=== PATIENT | male | born 2000 | race Caucasian/White ===

== ENCOUNTER → 2021-02-22 08:44 | Outpatient (CLI) | payer OTHER, SELFPAY ==
[2021-02-22 22:11] LABS: SARS-CoV-2 RNA PCR Positive
== END ==
PROVIDERS: Visit Provider Nurse Practitioner Family
DX: U07.1 COVID-19 (principal)
CPT/HCPCS: C9803; U0003; U0005

== ENCOUNTER 2022-03-31 22:55 | Observation (INO) | payer OTHER, SELFPAY ==
--- NOTE | ~2022-03-31 | CT_ITS ---
EXAMINATION: CTA chest PE protocol DATE: 04/01/2022 03:26 INDICATION: Upper chest pain, shortness of breath. Elevated d-dimer. TECHNIQUE: Computed tomography angiography (CTA) of the chest was performed with 100 mL Omnipaque-350 intravenous contrast timed to evaluate the pulmonary arteries. Coronal maximum intensity projection 3D-reconstructions were created by the technologist. Automated exposure control and iterative reconst ruction technique were employed. Exam dose: 215.61 mGy-cm total exam DLP. COMPARISON: April 01, 2019 3:00 PM lateral chest FINDINGS: There is prominent pneumomediastinum, from upper to lower chest. Prominent cervical subcuta neous emphysema and mild upper thoracic subcutaneous emphysema. Slight right apical pneumothorax. Mild bilateral apical scarring. No pulmonary infiltrate or consolidation. Normal heart size. No pericardial effusion or pleural effusion. Included upper abdominal structures a re unremarkable. There is diagnostic contrast enhancement of the pulmonary arteries and no evidence of pulmonary embol ism. IMPRESSION: Extensive pneumomediastinum, prominent cervical and mild upper thoracic subcutaneous emp hysema Minimal right apical pneumothorax No evidence of pulmonary embolism Reviewed, dictated and finalized at [facility]. Reviewed, dictated and finalized at location A. KROOM HELPER IMPRESSION: Extensive pneumomediastinum, prominent cervical and mild upper tho racic subcutaneous emphysema Minimal right apical pneumothorax No evidence of pulmonary embolism
--- NOTE | ~2022-03-31 | XR_ITS ---
XR chest 2V DATE: 04/01/2022 00:30 INDICATION: Chest pain. Elevated d-dimer. TECHNIQUE: PA and lateral views COMPARISON: None FINDINGS: There is pneumomediastinum and cervical subcutaneous emphysema. Slight right apical pneumot horax. Normal heart size. No hilar or mediastinal enlargement. No pulmonary infiltrate or consolidation, ple ural effusion or pulmonary vascular congestion or pneumothorax is detected. IMPRESSION: Slight right apical pneumothorax and pneumomediastinum Reviewed, dictated and finalized at location A. T MAKER
--- NOTE | ~2022-03-31 | XR_ITS ---
XR chest 1V portable 04/02/2022 06:25 Indication: Pneumothorax. Procedure: AP portable chest Comparison: Comparison to multiple prior studies sequentially, with oldest reviewed study dated 04/01. Findings: Stable small right apical pneumothorax and pneumomediastinum. Heart size normal. No focal p neumonia, edema, pleural effusion. No acute osseous abnormality. Impression: 1: Stable small right apical pneumothorax and pneumomediastinum. Reviewed, dictated and finalized at location A. ROUND LOGGER Impression: 1: Stable small right apical pneumothorax and pneumomediastinum.
--- NOTE | ~2022-03-31 | XR_ITS ---
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 RESULT: Lines, tubes, and devices: None. Lungs and pleura: Demonstration of the tiny right apical pneumothorax, unchanged. Lungs otherwise cl ear. Cardiomediastinal silhouette: Stable pneumomediastinum. Other: No acute osseous or upper abdominal finding. IMPRESSION: Stable small right apical pneumothorax and pneumomediastinum. Reviewed, dictated and finalized at location K. C THEORY TEACHER
--- NOTE | ~2022-03-31 | XR_ITS ---
EXAMINATION: XR chest 2V DATE: 04/03/2022 09:53 INDICATION: Pneumothorax TECHNIQUE: PA and lateral views of the chest were obtained. COMPARISON: Chest radiograph dated 04/02/2022 and 04/01/2022 FINDINGS: The lungs are clear with no focal airspace opacities, pulmonary edema, pleural effusion or pneumothor ax. Heart size is normal. Decrease in a now minimal amount of pneumomediastinum seen anterior to the heart on the lateral projection. Mild upper thoracic levocurvature. IMPRESSION: 1. Interval decrease in a small amount of residual pneumomediastinum. No pneumothorax or other acute cardiopulmonary disease. Reviewed, dictated and finalized at location D. DE SALES MANAGER IMPRESSION: 1. Interval decrease in a small amount of residual pneumomediastinum. No pneumo thorax or other acute cardiopulmonary disease.
--- NOTE | 2022-03-31 22:56 | ECG_ITS ---
Measurements Intervals [place] Rate: 113 P: 87 NM: 138 QRS: 89 QRSD: 90 T: 22 QT: 303 QTc: 416 Interpretive Statements SINUS TACHYCARDIA POSSIBLE RIGHT ATRIAL ENLARGEMENT [0.25mV P WAVE] LEFT VENTRICULAR HYPERTROPHY AND ST-T CHANGE [VOLTAGE CRITERIA PLUS ST/T ABNORMALITY] NO PREVIOUS ECG AVAILABLE FOR COMPARISON Electronically Signed On 04-01-2022 16:17:52 FLOORING MECHANIC by Ryan Torres M.D.
[2022-03-31 22:57] VITALS: BP 166/101; PULSE 116; RESP 16; TEMP 36.8; O2SAT 99
[2022-03-31 23:14] LABS: Basophils Percent Auto 0.3 % (0.2-1.2); Eosinophils Absolute Auto 0.3 K/mm3 (0-0.3); Eosinophils Percent Auto 2.4 % (0-4.4); Hematocrit 43.9 % (42.0-52.0); Hemoglobin 15.7 g/dL (14.0-18.0); Immature Granulocyte Absolute 0.05 K/mm3 (0.00-0.031); Immature Granulocyte Percent A 0.5 % (0-0.5); Lymphocytes Absolute Auto 1.18 K/mm3 (0.9-3.2); Lymphocytes Percent Auto 10.7 % (18.3-44.2); Mean Corpuscular HGB Conc 35.8 g/dl (32-36); Mean Corpuscular Volume 83.9 fl (80-100); Mean Platelet Volume 11.3 fl (7.4-10.4); Monocytes Percent Auto 9.4 % (2.6-8.5); Neutrophils Absolute Auto 8.4 K/mm3 (1.3-6.7); Neutrophils Percent Auto 76.7 % (45.5-73.1); Platelet Count Result 211 k/mm3 (150-375); Red Blood Count 5.23 M/mm3 (4.6-6.20); Red Cell Distribution Width 12.5 % (11.5-14.5)
[2022-03-31 23:24] LABS: INR 1.2; Partial Thromboplastin Time 28.8 SECONDS (22.3-36.8); Prothrombin Time 14.9 Seconds (11.1-14.7)
[2022-03-31 23:29] LABS: Alanine Aminotransferase 20 U/L (6-50); Albumin Level 4.9 g/dL (3.5-5.1); Alkaline Phosphatase 86 U/L (38-126); Anion Gap 10 mmol/L (8-16); Aspartate Amino Transferase 27 U/L (17-59); Bilirubin,Total 2.1 mg/dL (0.2-1.3); Blood Urea Nitrogen 14 mg/dL (9-20); Calcium 8.9 mg/dL (8.4-10.2); Carbon Dioxide 29 mmol/L (22-30); Chloride 99 mmol/L (98-107); Estimated CRCL calculation 120 ml/min; Estimated Glomerular Filt Rate > 60; Glucose 113 mg/dL (65-110); Lipase 72 U/L (23-300); Potassium 3.8 mmol/L (3.4-5.0); Sodium 138 mmol/L (137-145)
[2022-03-31 23:40] LABS: Troponin I < 0.012 ng/mL (0.000-0.034)
[2022-04-01] VITALS (55 sets, daily range): BP systolic 127–149; BP diastolic 78–98; PULSE 69–101; RESP 10–21; TEMP 37.1; O2SAT 97–100; BMI 19.1
[2022-04-01] MEDS: BELLADONNA ALK/PHENOB ELIX 10 ML, MAG HYDROX/ALUMINUM HYD/SIMETH 30 ML, LIDOCAINE HCL 2... PO (02:24)
[2022-04-01 02:47] LABS: D Dimer 0.53 ug/mL (<0.48)
[2022-04-01 02:49] LABS: Troponin I < 0.012 ng/mL (0.000-0.034)
--- NOTE | 2022-04-01 04:57 | ED.GENADULT ---
HPI - General Adult General Chief complaint: Chest Pain <Hussein Julien MD - Last Filed: 04/01/22 06:34> Stated complaint: CP <Hussein Julien MD - Last Filed: 04/01/22 06:34> Time Seen by Provider: 04/01/22 01:42 <Hussein Julien MD - Last Filed: 04/01/22 06:34> History of Present Illness HPI narrative: Patient 21-year-old gentleman who presents to Emergency Department with a chief complaint of chest pain. Patient reports he has prior history of a spontaneous pneumothorax and reports that he has a feeling of discomfort through his chest up into his neck. <Hussein Julien MD - Last Filed: 04/01/22 06:34> Related Data Allergies/adverse reactions: Allergies Allergy/AdvReac Type Severity Reaction Status Date / Time No Known Allergies Allergy Verified 04/01/22 02:23 <Hussein Julien MD - Last Filed: 04/01/22 06:34> Review of Systems Review of Systems: A 10 system review of systems was completed on the patient and is negative except for what is stated in the HPI. Nursing and ancillary documentation was reviewed. <Hussein Julien MD - Last Filed: 04/01/22 06:34> Exam Narrative: GENERAL: Well-appearing, well-nourished, and in no acute distress. HEAD: Normocephalic, atraumatic. EYES: PERRLA and EOMI. ENT: Nares clear, no rhinorrhea or epistaxis. Mucous membranes moist. NECK: Supple. CHEST: Clear to auscultation. No respiratory distress. HEART: Regular rate and rhythm. No murmur heard. Normal peripheral pulses. ABDOMEN: Soft, nontender, nondistended, normal active bowel sounds. EXTREMITIES: Normal range of motion. No edema. SKIN: Warm, dry, no rash. NEURO: No focal deficits. Alert and oriented x3. PSYCH: Normal mood and affect. <Hussein Julien MD - Last Filed: 04/01/22 06:34> Course Reevaluation(s) Reevaluation #1: 6:[address] [facility] states that a bed is still not available. On reevaluation patient states that he does feel better compared to arrival. Patient denies any worsening chest pain or shortness of breath. Patient is oxygen by nasal cannula and states that this seems to be helping. Repeat chest x-ray showed no worsening of the pneumothorax or pneumomediastinum. Since bed is still not available plan was to see if patient could be admitted at [place]. Case was discussed with the hospitalist and she was comfortable with the plan for admission with surgery clearance. Surgery was updated on the patient and they were comfortable with the plan for admission as long as the patient had no worsening of the pneumothorax or pneumomediastinum. With a stable x-ray patient was placed on MedSurg telemetry for observation until a bed becomes available at [facility]. Patient and family were updated on the plan. All questions concerns were addressed. <Micah Segura MD - Last Filed: 04/01/22 18:04> Vital Signs Vital signs: Vital Signs Temperature 98.3 F 03/31/22 22:57 Pulse Rate 116 H 03/31/22 22:57 Respiratory Rate 16 03/31/22 22:57 Blood Pressure 166/101 H 03/31/22 22:57 Pulse Oximetry 99 03/31/22 22:57 Oxygen Delivery Room Air 03/31/22 22:57 Temperature 98.3 F 03/31/22 22:57 Pulse Rate 89 04/01/22 17:00 Respiratory Rate 16 04/01/22 17:00 Blood Pressure 130/90 04/01/22 17:00 Pulse Oximetry 99 04/01/22 17:00 Oxygen Delivery Room Air 03/31/22 22:57 <Hussein Julien MD - Last Filed: 04/01/22 06:34> Vital Signs Temperature 98.3 F 03/31/22 22:57 Pulse Rate 116 H 03/31/22 22:57 Respiratory Rate 16 03/31/22 22:57 Blood Pressure 166/101 H 03/31/22 22:57 Pulse Oximetry 99 03/31/22 22:57 Oxygen Delivery Room Air 03/31/22 22:57 Temperature 98.3 F 03/31/22 22:57 Pulse Rate 89 04/01/22 17:00 Respiratory Rate 16 04/01/22 17:00 Blood Pressure 130/90 04/01/22 17:00 Pulse Oximetry 99 04/01/22 17:00 Oxygen Delivery
[2022-04-01 05:48] LABS: Troponin I < 0.012 ng/mL (0.000-0.034)
[2022-04-01 06:02] LABS: Influenza A QL RT-PCR Negative (Negative); Influenza B QL RT-PCR Negative (Negative); RSV RNA, RT-PCR Negative (Negative); SARS-CoV-2 RNA PCR Negative
--- NOTE | 2022-04-01 07:10 | PC.NURSE ---
Patient care report given to SURI Coffman. All questions answered at this time and care turned over to SURI Coffman
--- NOTE | 2022-04-01 12:32 | PC.NURSE ---
called [facility] access line, pt still on wait list, no beds available. [id number]
--- NOTE | 2022-04-01 18:31 | PM.IMHP ---
H&P: HPI History of Present Illness Date/Time: 04/01/22 18:31 Chief Complaint: Chest pain shortness [place] Narrative: This is a 21-year-old male patient who has a history of having a spontaneous pneumothorax. The patient denies smoking any marijuana or smoking out of a bone. The patient had a chest tube with his last spontaneous pneumothorax which was a couple years ago. The patient was ambulating when he felt this discomfort to his chest and could not walk due to the shortness of breath. His white count 11.0. His D-dimer was noted to be 0.53. Troponins nonreactive x3. He is negative for influenza A/B RSV and COVID. Chest x-ray was read as stable small right apical pneumothorax and pneumo mediastinum. Chest CTA was read as Extensive pneumomediastinum, prominent cervical and mild upper thoracic subcutaneous emphysema Minimal right apical pneumothorax No evidence of pulmonary embolism Chest x-ray stable small right apical pneumothorax and pneumomediastinum Repeat chest x-ray was read as stable small right apical pneumothorax and pneumomediastinum. The patient was given [place] for pain. Patient was awaiting a bed at [facility] but there are no beds available. The patient stated that he felt better. Surgery was at dated on the patient and they were comfortable with the plan for admission as long as there was no worsening of pneumothorax or pneumomediastinum. Patient will be observed at [facility] until a bed becomes available at [facility]. Patient is admitted to observation status on the date of service of 04/01/2022 Review of Systems Review of Systems: See HPI All systems reviewed & are unremarkable except as noted in HPI and below Constitutional: Constitutional: Reports as per HPI and Reports no additional constitutional complaints Eyes: Eyes: Reports as per HPI and Reports no additional eye complaints ENT: Reports system reviewed and no additional complaints, except as documented and Reports Normal hearing present Cardiovascular: Cardiovascular: Reports no additional cardiovascular complaints Respiratory: Respiratory: Reports no additional respiratory complaints and Reports no additional respiratory complaints Gastrointestinal: Gastrointestinal: Reports as per HPI and Reports no additional gastrointestinal complaints Musculoskeletal: Musculoskeletal: Reports no additional musculoskeletal complaints Integumentary/Breasts: Skin/Breast: Reports system reviewed and no additional complaints, except as docu and Reports as per HPI Neurologic: Reports system reviewed and no additional complaints, except as documented, Reports as per HPI and Reports Normal hearing present Psychiatric: Psychiatric: Reports no additional psychiatric complaints and Reports as per HPI Endocrine: Endocrine: Reports no additional endocrine complaints Hematologic/Lymphatic: Hematologic/Lymphatic: Reports no additional hematologic/lymphatic complaints Allergic/Immunologic: Allergic/Immunologic: Reports no additional allergic/immunologic complaints PMFSH Past Medical History Medical History Anxiety Pneumothorax Surgical History Surgical History Hx of chest tube placement Family History Family History Father Hypertension Social History Social History (Updated 04/01/22 @ 23:51 by Suyapa Valentin NP) Social History: He lives with his parents. 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 He is a lifelong nonsmoker. He is single and has no children. Code status full code Smoking status: Never smoker Alcohol intake: never Substance use: never Lack of Transportation: No Lack of Food: Never True Current Housing: I Do Not Have Housing Concerned About Future Housing: No Difficulty Paying Gas/Electric Bills: No Difficulty Paying for Meds: No Curr
[2022-04-01] MEDS: HYDROcodone/acetaminophen (*CRX) 5-325 MG TABLET 1 TAB PO (19:00)
--- NOTE | 2022-04-01 19:17 | PC.NURSE ---
Report given to Sherlyn MCCORD. Questions answered and care relinquished.
--- NOTE | 2022-04-01 21:41 | ADMGEN ---
This patient, Faisal Small, was admitted to 2 Medical Room 240-01. Patient/family oriented to hospital policies and general routines including ID bracelet, bed and alarms, visiting hours, pain management, procedures, bathroom and other care routines, personal items, smoking policy, room service/diet, and visiting hours. Information on how to activate the Rapid Response Team has been discussed. Patient/Family are encouraged to report perceived risks to care and to ask questions if they do not understand what they are told or what they should do.
--- NOTE | 2022-04-01 22:49 | PC.NURSE ---
[facility] called for patient update, latest vitals were given and relayed no change in condition, still no bed available at this time.
--- NOTE | 2022-04-01 23:58 | PHAR ---
PHARMACY VERIFIED HOME MED: * USE FROM HOME * Vilazodone 20 mg tablet TAKE 1 TABLET BY MOUTH ONCE DAILY WITH FOOD
[2022-04-02] VITALS (9 sets, daily range): BP systolic 127–150; BP diastolic 64–71; PULSE 71–93; RESP 20–21; TEMP 36.9–37.1; O2SAT 100
[2022-04-02 06:16] LABS: Basophils Percent Auto 0.3 % (0.2-1.2); Eosinophils Absolute Auto 0.4 K/mm3 (0-0.3); Eosinophils Percent Auto 3.7 % (0-4.4); Hematocrit 42.8 % (42.0-52.0); Hemoglobin 15.2 g/dL (14.0-18.0); Immature Granulocyte Absolute 0.03 K/mm3 (0.00-0.031); Immature Granulocyte Percent A 0.3 % (0-0.5); Lymphocytes Percent Auto 11.7 % (18.3-44.2); Mean Corpuscular HGB Conc 35.5 g/dl (32-36); Mean Corpuscular Volume 84.4 fl (80-100); Monocytes Absolute Auto 1.2 K/mm3 (0.1-0.6); Monocytes Percent Auto 12.9 % (2.6-8.5); Neutrophils Absolute Auto 6.7 K/mm3 (1.3-6.7); Neutrophils Percent Auto 71.1 % (45.5-73.1); Platelet Count Result 204 k/mm3 (150-375); Red Blood Count 5.07 M/mm3 (4.6-6.20); Red Cell Distribution Width 12.7 % (11.5-14.5); White Blood Count 9.4 K/mm3 (4.5-10.0)
[2022-04-02 06:29] LABS: Lactic Acid Reflex 0.9 mmol/L (0.7-2.0)
[2022-04-02 06:35] LABS: Alanine Aminotransferase 18 U/L (6-50); Albumin Level 4.3 g/dL (3.5-5.1); Alkaline Phosphatase 67 U/L (38-126); Anion Gap 9 mmol/L (8-16); Aspartate Amino Transferase 28 U/L (17-59); Bilirubin,Total 1.9 mg/dL (0.2-1.3); Blood Urea Nitrogen 17 mg/dL (9-20); Calcium 8.7 mg/dL (8.4-10.2); Carbon Dioxide 32 mmol/L (22-30); Chloride 97 mmol/L (98-107); Estimated CRCL calculation 101 ml/min; Estimated Glomerular Filt Rate > 60; Glucose 86 mg/dL (65-110); Potassium 3.8 mmol/L (3.4-5.0); Sodium 138 mmol/L (137-145)
[2022-04-02] MEDS: FLUTICASONE PROPIONATE 0.05% NA SPR 16 GM BTL (*BKC) 2 SPRAY NASAL (08:11)
--- NOTE | 2022-04-02 10:32 | PM.CNGS ---
Assessment and Plan Assessment and plan (1) Pneumothorax, right: Code(s): J93.9 - Pneumothorax, unspecified Status: Acute Assessment and Plan: All imaging reviewed. He presented with spontaneous pneumomediastinum and a small right apical pneumothorax. He is clinically improving and imaging appears stable. He had a repeat chest x-ray this morning that appears stable as well. ER attempted transfer to [facility] for cardiothoracic surgery, but no beds were available and he has been awaiting transfer. We will continue to monitor him and repeat a chest x-ray again tomorrow morning. If this remains stable, then he could potentially be discharged home with outpatient follow-up with thoracic surgery. (2) Pneumomediastinum: Code(s): J98.2 - Interstitial emphysema Status: Acute Plan I have discussed the patient's case and plan of care with Dr. Hernandez. History of Present Illness Consult details Consult date: 04/02/22 Reason for consult: other (Small right apical pneumothorax and pneumomediastinum) Requesting physician: Micah Segura MD Narrative: This is an otherwise healthy 21-year-old man who presented to the ER with complaints of chest pain x 1 day. He reports first noticing some mild chest pain upon waking up Thursday morning, 2 days ago. His pain is in his mid to left chest and up into his anterior neck. He reports having a spontaneous left pneumothorax in 2019 that was treated with a chest tube in [place]. He denies requiring any surgery and has not had any issues since. He does report that his pain felt similar to when he had the pneumothorax in 2019. He went to school Thursday and felt his chest pain got worse and he developed shortness of breath when walking. The pain was severe enough in the evening that he eventually came into the ER for evaluation. He reports having pain in his throat even with swallowing and deep breathing when in the ER. Chest x-ray showed a slight right apical pneumothorax and pneumomediastinum. Labs showed a slightly elevated D-dimer. He subsequently had a chest CTA that showed no pulmonary embolism, minimal right apical pneumothorax, and extensive pneumomediastinum with prominent cervical and mild upper thoracic subcutaneous emphysema. The ER provider attempted to have the patient transferred to [facility] but there was no bed availability. He had a repeat chest x-ray in the ER and the small right apical pneumothorax and pneumomediastinum appeared stable. Due to no bed availability, he was then admitted to the medical floor. Our service was consulted for the pneumothorax and pneumomediastinum. The patient is now seen this morning. He reports feeling much better today. His chest pain and throat pain has improved. He was able to tolerate breakfast and is swallowing without pain. He had one [place] for pain last night but no pain medication this morning. He denies any shortness of breath. Chest x-ray was repeated this morning and showed the tiny right apical pneumothorax and pneumomediastinum appeared stable. He denies any recent blunt trauma or barotrauma. He denies any recent coughing or vomiting. He denies any recent procedures or surgeries. He is a lifelong nonsmoker. Review of Systems Review of Systems: All systems reviewed & are unremarkable except as noted in HPI and below Constitutional: Constitutional: Reports no additional constitutional complaints, Denies fatigue and Denies fever(s) Eyes: Eyes: Reports no additional eye complaints ENT: Reports system reviewed and no additional complaints, except as documented Cardiovascular: Cardiovascular: Reports no additional cardiovascular complaints, Reports chest pain, Denies pedal edema, Denies irregular heart rhythm and Denies leg edema Respiratory: Respiratory: Reports no additional respiratory complaints, Denies cough, Reports dyspnea (resolved) and Denies wheezing Gastrointestinal: Gastrointestinal: Reports no additional gastrointesti
--- NOTE | 2022-04-02 14:26 | PM.IMPN ---
Progress Note: A&P Assessment and Plan (1) Pneumothorax: Code(s): J93.9 - Pneumothorax, unspecified Status: Resolved Assessment and Plan: patient with history of spontaneous pneumothorax requiring chest tube in 2019 presented with complaints of chest and neck pain CXR on presentation showed right apical pneumothorax with pneumomediastinum CTA showed extensive pneumomediastinum with prominent cervical and mild upper thoracic subcutaneous emphysema and minimal right apical pneumothorax, no evidence of PE he has been accepted for transfer to [facility], awaiting bed availability appreciate general surgery consultation continue supplemental oxygen at 2 L supportive care (2) Pneumomediastinum: Code(s): J98.2 - Interstitial emphysema Status: Acute Assessment and Plan: plan as above (3) Anxiety: Code(s): F41.9 - Anxiety disorder, unspecified Status: Chronic Assessment and Plan: No acute issues Continue vilazodone which has been brought from home Subjective Date/time seen: 04/02/22 14:26 Interval history: date of service: 04/02/2022 Faisal Small is a 21-year-old male nonsmoker with a history of anxiety and spontaneous pneumothorax in 2019 requiring chest tube placement who is seen in follow-up again for spontaneous pneumothorax. He is awaiting bed availability at [facility] where he has been accepted for transfer. Patient reports that his symptoms were very similar to his previous spontaneous pneumothorax 4 years ago. About 2 weeks ago he had onset of left chest and throat pain. He saw his primary care provider in the symptoms subsided. Two days ago, the pain returned and was more severe , therefore patient came to ER for evaluation. At this time he is feeling better. He does have some left chest wall and neck pain that he describes as an aching sensation. He denies chest heaviness. He does have pleuritic discomfort. He endorses with of sore throat which is worse when talking or attempting to swallow. He is able to tolerate his diet and denies dysphagia. Denies feeling short of breath. Denies cough. No dizziness or lightheadedness. No palpitation. No abdominal pain, nausea, or vomiting. Review of Systems Review of Systems: All systems reviewed & are unremarkable except as noted in HPI and below Exam Narrative: General: thin, well-appearing 21-year-old male, sitting up in bed, comfortable, NARD Neuro: awake, alert and oriented x4, speech clear, no focal neuro deficits noted HEENMT: normocephalic, atraumatic, EOMI, sclerae anicteric, moist oral mucosa Chest: chest wall is nontender to palpation, no crepitus Respiratory: clear to auscultation bilaterally, nonlabored breathing, able to speak in complete sentences, no accessory muscle use Cardio: regular rate, regular rhythm with S1-S2 Abdomen: nondistended, normoactive bowel sounds, soft, nontender to palpation Extremities: no edema, erythema, or tenderness to palpation, DP pulses 2+ bilaterally Skin: no rashes or lesions, warm and dry Psych: appropriate mood and affect, judgment and insight intact Objective Data Vital Signs Vital Signs: Vital Signs - 24 hr 04/01/22 15:30 04/01/22 16:15 04/01/22 16:01 Temperature Pulse Rate 87 84 87 Respiratory Rate 19 17 13 Blood Pressure 134/86 136/83 Pulse Oximetry 100 100 99 Oxygen Delivery Oxygen Flow Rate 04/01/22 17:00 04/01/22 18:30 04/01/22 19:59 Temperature Pulse Rate 89 89 Respiratory Rate 16 20 Blood Pressure 130/90 140/96 H Pulse Oximetry 99 99 97 Oxygen Delivery Nasal Cannula Oxygen Flow Rate 2 04/01/22 20:38 04/02/22 04:43 04/02/22 00:00 Temperature 98.7 F 98.5 F Pulse Rate 79 86 73 Respiratory Rate 18 20 Blood Pressure 149/85 H 127/71 Pulse Oximetry 100 100 Oxygen Delivery Oxygen Flow Rate 04/02/22 04:00 04/02/22 08:00 04/02/22 12:00 Te
[2022-04-02] MEDS: ACETAMINOPHEN 325 MG TABLET 650 MG PO (21:00)
[2022-04-03] VITALS: PULSE 72
[2022-04-03 04:00] VITALS: PULSE 68
[2022-04-03 06:00] VITALS: BP 129/66; PULSE 77; RESP 20; TEMP 37; O2SAT 99
[2022-04-03 06:11] LABS: Hematocrit 41.2 % (42.0-52.0); Hemoglobin 14.6 g/dL (14.0-18.0); Mean Corpuscular HGB Conc 35.4 g/dl (32-36); Mean Corpuscular Hemoglobin 29.1 pg (26-34); Mean Corpuscular Volume 82.2 fl (80-100); Mean Platelet Volume 11.7 fl (7.4-10.4); Platelet Count Result 194 k/mm3 (150-375); Red Blood Count 5.01 M/mm3 (4.6-6.20); Red Cell Distribution Width 12.3 % (11.5-14.5); White Blood Count 6.8 K/mm3 (4.5-10.0)
[2022-04-03 06:25] LABS: Anion Gap 6 mmol/L (8-16); Blood Urea Nitrogen 12 mg/dL (9-20); Calcium 8.7 mg/dL (8.4-10.2); Carbon Dioxide 32 mmol/L (22-30); Chloride 97 mmol/L (98-107); Estimated CRCL calculation 113 ml/min; Estimated Glomerular Filt Rate > 60; Glucose 94 mg/dL (65-110); Potassium 3.8 mmol/L (3.4-5.0); Sodium 135 mmol/L (137-145)
[2022-04-03 08:00] VITALS: PULSE 77
[2022-04-03] MEDS: FLUTICASONE PROPIONATE 0.05% NA SPR 16 GM BTL (*BKC) 2 SPRAY NASAL (08:12)
[2022-04-03 08:13] VITALS: O2SAT 99
--- NOTE | 2022-04-03 09:31 | PM.PNGS ---
Progress Note: A&P Assessment and Plan (1) Pneumothorax, right: Code(s): J93.9 - Pneumothorax, unspecified Status: Acute Assessment and Plan: Chest x-ray this morning shows interval decrease in pneumomediastinum and no pneumothorax seen. Okay from our standpoint to discharge the patient today and have him follow-up with thoracic surgery as an outpatient. Discussed this with the patient as well and he is already looking into a thoracic surgeon to f/u with at [facility]. (2) Pneumomediastinum: Code(s): J98.2 - Interstitial emphysema Status: Acute Plan I have discussed the patient's case and plan of care with Dr. Hernandez. Subjective Subjective Date/Time Seen: 04/03/22 09:31 Patient reports: no new complaints, feels better and pain is less Interval history: Patient feeling well this morning. Still having some very mild pain that he reports is in his lower left chest. No right-sided chest pain or pain with swallowing. No shortness of breath or difficulty breathing. He is currently on room air and his nurse reports just checking his O2 sat of 97%. No acute issues overnight. Review of Systems Review of Systems: ROS unchanged Exam Const: General: comfortable and no acute distress Nutritional Appearance: thin Orientation/consciousness: patient oriented x3 Chest: Chest palpation & inspection: normal inspection of the chest and no crepitus Resp: Effort & Inspection: no respiratory distress Auscultation: clear to auscultation bilaterally Cardio: Rate: regular rate Rhythm: regular rhythm Objective Data Vital Signs Vital Signs: Vital Signs - 24 hr 04/02/22 12:00 04/02/22 14:00 04/02/22 16:00 Temperature 98.7 F Pulse Rate 83 82 81 Respiratory Rate Blood Pressure 138/68 Pulse Oximetry 100 04/02/22 22:00 04/02/22 20:00 04/03/22 00:00 Temperature 98.7 F Pulse Rate 83 81 72 Respiratory Rate 21 H Blood Pressure 150/64 H Pulse Oximetry 100 04/03/22 04:00 04/03/22 06:00 04/03/22 08:13 Temperature 98.6 F Pulse Rate 68 77 Respiratory Rate 20 Blood Pressure 129/66 Pulse Oximetry 99 99 Intake/Output Intake/Output: Intake & Output 03/31/22 04/01/22 04/02/22 04/03/22 23:59 23:59 23:59 23:59 Intake Total 1170 740 Balance 1170 740 Meds/Results Medications: Active Medications Generic Name Dose Route Start Last Admin Trade Name Stephan PRN Reason Stop Dose Admin Acetaminophen 650 mg 04/02/22 20:46 04/02/22 21:00 Acetaminophen 325 Mg Tablet PO 650 mg Q6H PRN Administration Mild Pain (1-3) or Fever Hydrocodone Bitart/Acetaminophen 1 tab 04/01/22 23:53 Hydrocodone/Acetaminophen (*Crx) 5-325 Mg Tablet PO Q4H PRN Pain Rated 4-6 Fluticasone Propionate 2 spray 04/02/22 09:00 04/03/22 08:12 Fluticasone Propionate 0.05% Na Spr 16 Gm Btl (*Bkc) NASAL 2 spray DAILY ALFRED Administration Home Med 1 each 04/02/22 09:00 04/03/22 08:12 *Home Med* Vilazodone 20 Mg Tablet PO 05/02/22 08:59 1 each DAILY ALFRED Administration Radiology Results: ITS Impressions Chest CTA 04/01/22 06:06 IMPRESSION: Extensive pneumomediastinum, prominent cervical and mild upper thoracic subcutaneous emphysema Minimal right apical pneumothorax No evidence of pulmonary embolism Chest X-Ray 04/02/22 06:26 Impression: 1: Stable small right apical pneumothorax and pneumomediastinum. Labs Labs: Laboratory Results - last 24 hr 04/03/22 04/03/22 05:26 05:26 WBC 6.8 RBC 5.01 Hgb 14.6 Hct 41.2 L MCV 82.2 MCH 29.1 MCHC 35.4 RDW 12.3 Plt Count 194 MPV 11.7 H Sodium 135 L Potassium 3.8 Chloride 97 L Carbon Dioxide 32 H Anion Gap 6 L BUN 12 D Creatinine 0.80 Estim Creat Clear Calc 113 Estimated GFR > 60 Glucose 94 Calcium 8.7
[2022-04-03 14:02] VITALS: BP 139/75; PULSE 86; RESP 16; TEMP 36.9; O2SAT 99
--- NOTE | 2022-04-03 14:08 | PM.DS ---
DS: Admitting Diagnosis Discharge Date 04/03/22 Admitting Diagnosis spontaneous pneumothorax DS: Discharge Diagnosis Discharge Diagnosis (1) Pneumothorax: Code(s): J93.9 - Pneumothorax, unspecified Status: Resolved Assessment and Plan: Patient with history of spontaneous pneumothorax requiring chest tube in 2019 presented with complaints of chest and neck pain CXR on presentation showed right apical pneumothorax with pneumomediastinum CTA showed extensive pneumomediastinum with prominent cervical and mild upper thoracic subcutaneous emphysema and minimal right apical pneumothorax, no evidence of PE He was seen in consultation by General surgery during admission Initially accepted for transfer to [facility], however no beds available. Transfer was canceled as patient had symptomatic improvement and will follow-up as an outpatient Repeat x-ray on date of discharge showed no pneumothorax with interval decrease in small amount of residual pneumomediastinum (2) Pneumomediastinum: Code(s): J98.2 - Interstitial emphysema Status: Acute Assessment and Plan: plan as above (3) Epistaxis: Code(s): R04.0 - Epistaxis Status: Acute Assessment and Plan: Patient was supplemented episode of epistaxis, reports lasted approximately 1 minute suspect secondary to dry nasal passages exacerbated by supplemental oxygen via nasal cannula H&H stable supplemental oxygen was discontinued and patient has been instructed to begin nasal saline spray q6h (4) Elevated d-dimer: Code(s): R79.89 - Other specified abnormal findings of blood chemistry Status: Acute Assessment and Plan: D-dimer slightly elevated at 0.53 not felt to be clinically significant CTA negative for pulmonary embolism no evidence to suggest DVT. Wells score for DVT is 0. No indication for venous dopplers (5) Anxiety: Code(s): F41.9 - Anxiety disorder, unspecified Status: Chronic Assessment and Plan: No acute issues Continue vilazodone which has been brought from home DS: Summary Hospital Course Hospital Course: date of admission: 04/01/2022 date of discharge: 04/03/2022 Faisal Small is a 21-year-old male nonsmoker with a history of anxiety and spontaneous pneumothorax in 2019 requiring chest tube placement who?presented to the emergency department on 04/01/2022 with complaints of chest pain and discomfort radiating up to the neck. Upon presentation to the ED, was tachycardic with additional vital signs stable, white blood cell count 11.0, additional laboratory workup unremarkable, troponin negative, D-dimer slightly elevated 0.53, CXR reveals slight right apical pneumothorax and pneumomediastinum and chest CTA showed extensive pneumomediastinum with prominent cervical and mild upper thoracic subcutaneous emphysema and minimal right apical pneumothorax, no evidence of PE. ER physician spoke with move coordinator, Dr. Gipson at [facility] inpatient was accepted for transfer, however no beds available, therefore patient was admitted to the hospitalist service while awaiting a bed at outside facility. He was seen in consultation by General surgery during admission. Was placed on supplemental oxygen and had symptomatic improvement. His chest and neck pain resolved. Serial x-rays remained stable and patient was weaned from oxygen. He was maintaining adequate O2 sats on room air. Repeat x-ray on 04/03/2022 showed no pneumothorax or other acute cardiopulmonary disease with interval decrease in small amount of residual pneumomediastinum. I spoke with transfer line who connected me with Dr. Gipson. reviewed repeat x-rays with Dr. Gipson who agreed that patient was appropriate for outpatient follow-up and he will arrange expedited office follow-up visit. Discussed with the patient and his parents who were in agreeable with plans for discharge home and prompt
== END 2022-04-03 14:34 | disposition home or self-care (01) ==
LOC: ANHED 04-01 18:04 → ANH2MED 04-01 20:59
PROVIDERS: Nurse Practitioner; Admitting Provider Chiropractor; Emergency Provider Emergency Medicine; PCP Nurse Practitioner Family; Visit Provider Physician Assistant
DX: J93.9 Pneumothorax, unspecified (principal); J98.2 Interstitial emphysema; R04.0 Epistaxis; R07.9 Chest pain, unspecified; R00.0 Tachycardia, unspecified; R79.89 Other specified abnormal findings of blood chemistry; F41.9 Anxiety disorder, unspecified; R06.02 Shortness of breath; Z20.822 Contact with and (suspected) exposure to COVID-19; Z79.51 Long term (current) use of inhaled steroids; Z79.899 Other long term (current) drug therapy
CPT/HCPCS: 36415; 71045; 71046; 71275; 80048; 80053; 83605; 83690; 84443; 84484; 85025; 85027; 85380; 85610; 85730; 87637; 93005; 99285; A9270; G0378; Q9967